=== PATIENT | female | born 1960 | race Caucasian/White ===

== ENCOUNTER 2021-06-25 10:06 | Day surgery (SDC) | payer MEDICAID ==
--- NOTE | 2021-06-24 13:23 | PCM.PREANE ---
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 bowls) daily:(medical)), Cough (started on Tuesday of last week: tickle in her throat (dry.)) Cardiovascular: No Symptoms (Elevated cholesterol, HTN), Dyspnea on Exertion, Lightheadedness Gastrointestinal: No Symptoms (GERD), Diarrhea Neurological: No Symptoms Other: Reports: None, Thyroid Problems (hypothyroid), Depression, Anxiety - Physical Assessment NPO Status Date: 06/24/21 NPO Status Time: 19:00 Vital Signs: HR: 94 Sat: 94% B/P: 156/82 Temp: 98.1 Resp: 16 Height: 1.65 m Weight: 84 kg ASA Class: 3 Mental Status: Alert & Oriented x3 Airway Class: Mallampati = 2 Dentition: Reports: Edentulous Thyro-Mental Finger Breadths: 3 Mouth Opening Finger Breadths: 3 ROM/Head Extension: Full Lungs: Clear to Auscultation, Normal Respiratory Effort Cardiovascular: Regular Rate, Regular Rhythm, No Murmurs - Lab Values: All labs reviewed and noted and within acceptable ranges to proceed with scheduled procedure. - Allergies Allergies/Adverse Reactions: Allergies Allergy/AdvReac Type Severity Reaction Status Date / Time No Known Allergies Allergy Verified 06/25/21 10:15 - Anesthesia Plan Pre-Op Medication Ordered: None - Acknowledgements Anesthesia Type Planned: MAC Pt an Appropriate Candidate for the Planned Anesthesia: Yes Alternatives and Risks of Anesthesia Discussed w Pt/Guardian: Yes Pt/Guardian Understands and Agrees with Anesthesia Plan: Yes PreAnesthesia Questionnaire - HOME MEDS Home Medications: Home Meds ALPRAZolam [Alprazolam] 0.5 mg PO DAILY PRN 12/18/14 [History] Acetaminophen/HYDROcodone [[place] 325-5 MG] 1 tab PO Q6H PRN 12/18/14 [History] Fluticasone Propionate [Flonase Allergy Relief] 1 spray JESENIA BID PRN 12/18/14 [History] Levothyroxine 150 mcg PO DAILY 12/18/14 [History] Loratadine 1 mg PO DAILY PRN 12/18/14 [History] Sertraline [Zoloft] 100 mg PO DAILY 12/18/14 [History] Zolpidem [Ambien] 5 - 10 mg PO BEDTIME 12/18/14 [History] - CURRENT (IN HOUSE) MEDS Current Meds: Current Medications Lactated Ringer's (Ringers, Lactated) 1,000 mls @ 125 mls/hr IV ASDIRECTED MARYJANE Lidocaine/Sodium Bicarbonate (Lidocaine 1%/Sod Bicarbonate In Ns 8.4% 1 Ml Syringe) 0.25 ml IDERM ONETIME PRN PRN Reason: Prior to IV Start Sodium Chloride (Sodium Chloride 0.9% 10 Ml Syringe) 10 ml FLUSH ASDIRECTED PRN PRN Reason: Keep Vein Open
[~2021-06-25 10:06] MED LIST: Lactated Ringers 1,000 ML IV SCH; Lidocaine 1%/Sod Bicarbonate in NS 8.4% 1 ML Syringe IDERM PRN; Sodium Chloride 0.9% 10 ML Syringe FLUSH PRN
[2021-06-25] MEDS ORDERED: Albuterol 0.083% 2.5 MG/3 ML Neb Soln NEB ONE ×2 (10:15→13:00)
[2021-06-25] MEDS ORDERED: Ondansetron 4 MG/2 ML SDV ONE (10:18)
[2021-06-25] MEDS ORDERED: Lactated Ringers 1,000 ML ONE (10:18)
[2021-06-25] MEDS ORDERED: ceFAZolin 1 GM Vial ONE (10:18)
[2021-06-25] MEDS ORDERED: Midazolam 1 MG/ML 2 ML SDV ONE (10:19)
[2021-06-25] MEDS ORDERED: fentaNYL 100 MCG/2 ML SDV ONE (10:19)
[2021-06-25] MEDS ORDERED: Propofol 200 MG/20 ML SDV ONE ×2 (10:19→12:14)
[2021-06-25] MEDS ORDERED: Ketamine 500 mg/10 ML MDV ONE (11:25)
[2021-06-25] MEDS ORDERED: Bupivacaine 0.5%/EPINEPHrine 1:200,000 50 ML MDV ONE (11:58)
[2021-06-25] MEDS ORDERED: HYDROmorphone 0.5 MG/0.5 ML Syringe IVPUSH PRN (12:07)
[2021-06-25] MEDS ORDERED: Ondansetron 4 MG/2 ML SDV IVPUSH PRN (12:07)
[2021-06-25] MEDS ORDERED: fentaNYL 100 MCG/2 ML SDV IVPUSH PRN (12:07)
[2021-06-25] MEDS ORDERED: HYDROmorphone 0.5 MG/0.5 ML Syringe ONE (12:16)
--- NOTE | 2021-06-25 13:06 | PCM.PRNOTE ---
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 Shave margins obtained. Titanium clips placed to demarcate margins. Detailed Report: The patient was taken to the operating room and placed on the table in prone position. Timeout was performed and the lower back buttocks and perineum were prepped in usual sterile fashion. A total of 25 cc 0.5% Marcaine with epinephrine was used for local anesthetic. A longitudinal ellipse was marked encompassing the site of prior incisional biopsy. The ellipse measured approximately 9 x 4-1/2 cm prior to incision. A 10 blade scalpel was used to incise through skin down to subcutaneous fat. Bovie electrocautery was used to raise skin flaps medially and laterally. Dissection was carried down deep to the level of muscle fascia. The specimen was removed intact containing the ellipse of skin and healthy appearing subcutaneous fat encompassing the lesion. Marking stitches were placed to denote the superior and lateral aspects of the specimen. The specimen measured 8 x 6 x 5 cm. Shave margins were obtained at the superior, inferior, medial, lateral, deep and superficial aspects. These boundaries were also marked with a small titanium clip fish stringer assembler. The wound was irrigated with hydrogen peroxide and hemostasis appeared excellent. The wound was closed with several vertical mattress nylon sutures and skin edges came together without undue tension. The patient tolerated the procedure well.
[2021-06-25 13:10] VITALS: PULSE 89
--- NOTE | 2021-06-25 13:11 | PCM48HPAN ---
Post Anesthesia Note - EVALUATION WITHIN 48HRS OF ANESTHETIC Vital Signs in Normal Range: Yes Patient Participated in Evaluation: Yes Respiratory Function Stable: Yes Airway Patent: Yes Cardiovascular Function Stable: Yes Hydration Status Stable: Yes Pain Control Satisfactory: Yes Nausea and Vomiting Control Satisfactory: Yes Mental Status Recovered: Yes Vital Signs: Last Vital Signs Temp 98.1 06/25/21 1257 Pulse 89 06/25/21 1257 Resp 12 06/25/21 1257 BP 131/89 06/25/21 1257 Pulse Ox 95% 06/25/21 1257
[2021-06-25 13:32] VITALS: BP 123/89
== END 2021-06-25 13:53 | disposition home or self-care (01) ==
LOC: JD.SDS 10:06
PROVIDERS: ATTEND Surgery
DX: C49.5 Malignant neoplasm of connective and soft tissue of pelvis (principal); I10 Essential (primary) hypertension; J44.9 Chronic obstructive pulmonary disease, unspecified; K21.9 Gastro-esophageal reflux disease without esophagitis; E78.00 Pure hypercholesterolemia, unspecified; E03.9 Hypothyroidism, unspecified; E78.2 Mixed hyperlipidemia; F41.1 Generalized anxiety disorder; F17.210 Nicotine dependence, cigarettes, uncomplicated; E55.9 Vitamin D deficiency, unspecified; Z79.899 Other long term (current) drug therapy; Z79.890 Hormone replacement therapy; Z98.890 Other specified postprocedural states
CPT/HCPCS: 00300; J0690; J1170; J2250; J2405; J2704; J3010; J3490; J7120

== ENCOUNTER 2021-07-07 07:41 | Day surgery (SDC) | payer MEDICAID ==
[~2021-07-07 07:41] MED LIST changes: +Albuterol 0.083% 2.5 MG/3 ML Neb Soln NEB SCH
[2021-07-07] MEDS ORDERED: Lidocaine 1% with EPINEPHrine 1:100,000 10 ML MDV ONE ×4 (07:55→09:05)
[2021-07-07] MEDS ORDERED: Propofol 200 MG/20 ML SDV ONE ×2 (08:18→09:01)
[2021-07-07] MEDS ORDERED: Ondansetron 4 MG/2 ML SDV ONE (08:18)
[2021-07-07] MEDS ORDERED: Midazolam 1 MG/ML 2 ML SDV ONE (08:19)
[2021-07-07] MEDS ORDERED: fentaNYL 250 MCG/5 ML SDV ONE (08:19)
[2021-07-07] MEDS ORDERED: Lidocaine 1% 4 ML ONE (08:19)
[2021-07-07] MEDS ORDERED: Ketamine 500 mg/10 ML MDV ONE (08:53)
--- NOTE | 2021-07-07 09:00 | PCM.PRNOTE ---
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 Specimen oriented with short stitch superior and long stitch lateral. Detailed Report: The patient was taken to the operating room and placed in prone position. Timeout was performed and monitored anesthesia care was initiated. The buttocks were prepped with iodine and draped in sterile fashion. 30 cc of 1% lidocaine with epinephrine was injected circumferentially around the old incision. A longitudinal ellipse was marked with wide lateral and medial margins. Sharp dissection was carried down through skin and subcutaneous fat down to the level of the gluteus. During the deep dissection, the seroma cavity was entered and serous fluid was spilled. The dissection field was suctioned dry. The specimen was removed in 1 piece and oriented with stitches marking the superior and lateral aspects. The final specimen measured approximately 10 x 8 x 5 cm. The dissection field was dry and hemostasis was satisfactory. The wound was closed with several interrupted vertical mattress nylon sutures. A dry dressing was placed. The patient tolerated the procedure well.
[2021-07-07] MEDS ORDERED: Labetalol 100 MG/20 ML MDV ONE (09:05)
--- NOTE | 2021-07-07 09:52 | PCM.PREANE ---
Preanesthetic Assessment - Procedure Proposed Procedure: wide local incision left buttock - Anesthesia/Transfusion/Family Hx Anesthesia History: Prior Anesthesia Without Reaction Family History of Anesthesia Reaction: No Transfusion History: No Prior Transfusion(s) Intubation History: Unknown - Review of Systems General: No Symptoms Pulmonary: No Symptoms Cardiovascular: Dyspnea on Exertion Gastrointestinal: No Symptoms Neurological: No Symptoms Other: Reports: Thyroid Problems (hypothyroid) - Physical Assessment NPO Status Date: 07/06/21 NPO Status Time: 00:00 Vital Signs: Last Vital Signs Temp 36.6 C 07/07/21 07:50 Pulse 64 07/07/21 07:50 Resp 18 07/07/21 07:50 BP 165/97 H 07/07/21 07:50 Pulse Ox 95 07/07/21 07:50 Height: 1.65 m Weight: 87.09 kg ASA Class: 3 Mental Status: Alert & Oriented x3 Airway Class: Mallampati = 1 Dentition: Reports: Dentures Thyro-Mental Finger Breadths: 3 Mouth Opening Finger Breadths: 3 ROM/Head Extension: Limited/Partial Lungs: Clear to Auscultation, Normal Respiratory Effort Cardiovascular: Regular Rate, Regular Rhythm - Allergies Allergies/Adverse Reactions: Allergies Allergy/AdvReac Type Severity Reaction Status Date / Time No Known Allergies Allergy Verified 07/07/21 08:47 - Blood Blood Available: No Product(s) Available: None - Anesthesia Plan Pre-Op Medication Ordered: None - Acknowledgements Anesthesia Type Planned: MAC Pt an Appropriate Candidate for the Planned Anesthesia: Yes Alternatives and Risks of Anesthesia Discussed w Pt/Guardian: Yes Pt/Guardian Understands and Agrees with Anesthesia Plan: Yes PreAnesthesia Questionnaire HEENT History: Reports: Allergic Rhinitis Cardiovascular History: Reports: High Cholesterol, Hypertension Respiratory History: Reports: COPD Gastrointestinal History: Reports: Chronic Diarrhea, GERD, Irritable Bowel Syndrome Genitourinary History: Reports: None 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 (See Below) Other OB/BYN History: post menopausal, c section, breast lumpectomy, cervix conization Musculoskeletal History: Reports: Osteoarthritis, Other (See Below) Other Musculoskeletal History: left ankle pain, right knee chondromalacia patellae, left tennis elbow, right knee pain, right shoulder pain, quad tightness, left knee contusion Neurological History: Reports: None Psychiatric History: Reports: None Endocrine/Metabolic History: Reports: Hypothyroidism, Vitamin D Deficiency Hematologic History: Reports: None Immunologic History: Reports: None Oncologic (Cancer) History: Reports: Other (See Below) Other Oncologic History: malignant fibrous histiocytoma Dermatologic History: Reports: Other (See Below) Other Dermatologic History: buttock contusion, eczema, buttock sarcoma, skin pruritis, soft tissue mass, traumatic hematoma to left elbow - Infectious Disease History Infectious Disease History: Reports: None - Past Surgical History Head Surgeries/Procedures: Reports: None HEENT Surgical History: Reports: None Cardiovascular Surgical History: Reports: None Respiratory Surgical History: Reports: None GI Surgical History: Reports: None Female Surgical History: Reports: Tubal Ligation Endocrine Surgical History: Reports: None Neurological Surgical History: Reports: None Musculoskeletal Surgical History: Reports: Other (See Below) Other Musculoskeletal Surgeries/Procedures:: knee surgery, Oncologic Surgical History: Reports: Lumpectomy Dermatological Surgical History: Reports: None - SUBSTANCE USE Tobacco Use Status *Q: Current Every Day Tobacco User Tobacco Use Within Last Twelve Months: Cigarettes Second Hand Smoke Exposure: No Days Per Week of Alcohol Use: 1 Number of Drinks Per Day: 2 Total Drinks Per Week: 2 Recreational Drug Use History: No - HOME MEDS Home Medications: Home Meds Albuterol [Ventolin HFA] 1 - 2 puff INH Q4HR 07/07/21 [History] Cholecalciferol (Vitamin D3) [Vitamin D3] 5,000 unit PO DAILY 07/07/21 [History] Escitalopram Oxalate [Lexapro] 20 mg PO DAILY 07/07/21 [History] Levothyroxine 200 mcg PO ACBREAKFAST 07/07/21 [History] Pantoprazole Sodium [Protonix] 20 mg PO DAILY 07/07/21 [History] atorvaSTATin [Lipitor] 20 mg PO DAILY 07/07/21 [History] buPROPion [buPROPion XL] 150 mg PO DAILY 07/07/21 [History] lisinopriL [Lisinopril] 10 mg PO DAILY 07/07/21 [History] oxyCODONE 5 mg PO Q4H PRN #20 tab 07/07/21 [Rx] - CURRENT (IN HOUSE) MEDS Current Meds: Current Medications Albuterol (Albuterol 0.083% 2.5 Mg/3 Ml Neb Soln) 2.5 mg NEB ONETIME MARYJANE Stop: 07/07/21 16:00 Last Admin: 07/07/21 08:19 Dose: 2.5 mg Documented by: Lactated Ringer's (Ringers, Lactated) 1,000 mls @ 125 mls/hr IV ASDIRECTED MARYJANE Stop: 07/07/21 23:00 Last Admin: 07/07/21 08:15 Dose: 125 mls/hr Documented by: Lidocaine/Sodium Bicarbonate (Lidocaine 1%/Sod Bicarbonate In Ns 8.4% 1 Ml Syringe) 0.25 ml IDERM ONETIME PRN PRN Reason: Prior to IV Start Stop: 07/07/21 23:00 Last Admin: 07/07/21 08:15 Dose: 0.25 ml Documented by: Sodium Chloride (Sodium Chloride 0.9% 10 Ml Syringe) 10 ml FLUSH ASDIRECTED PRN PRN Reason: Keep Vein Open Stop: 07/07/21 23:00 Discontinued Medications Fentanyl (Fentanyl 250 Mcg/5 Ml Sdv) Confirm Administered Dose 250 mcg .ROUTE .STK-MED ONE Stop: 07/07/21 08:20 Lidocaine HCl (Xylocaine-Mpf 1%) Confirm Administered Dose 4 mls @ as directed .ROUTE .STK-MED ONE Stop: 07/07/21 08:20 Ketamine HCl (Ketamine 500 Mg/10 Ml Mdv) Confirm Administered Dose 500 mg .ROUTE .STK-MED ONE Stop: 07/07/21 08:54 Labetalol HCl (Labetalol 100 Mg/20 Ml Mdv) Confirm Administered Dose 100 mg .ROUTE .STK-MED ONE Stop: 07/07/21 09:06 Lidocaine/Epinephrine (Lidocaine 1% With Epinephrine 1:100,000 10 Ml Mdv) Confirm Administered Dose 10 ml .ROUTE .STK-MED ONE Stop: 07/07/21 07:56 Lidocaine/Epinephrine (Lidocaine 1% With Epinephrine 1:100,000 10 Ml Mdv) Confirm Administered Dose 10 ml .ROUTE .STK-MED ONE Stop: 07/07/21 07:59 Lidocaine/Epinephrine (Lidocaine 1% With Epinephrine 1:100,000 10 Ml Mdv) Confirm Administered Dose 20 ml .ROUTE .STK-MED ONE Stop: 07/07/21 09:03 Lidocaine/Epinephrine (Lidocaine 1% With Epinephrine 1:100,000 10 Ml Mdv) Confirm Administered Dose 20 ml .ROUTE .STK-MED ONE Stop: 07/07/21 09:06 Midazolam HCl (Midazolam 1 Mg/Ml 2 Ml Sdv) Confirm Administered Dose 2 mg .ROUTE .STK-MED ONE Stop: 07/07/21 08:20 Ondansetron HCl (Ondansetron 4 Mg/2 Ml Sdv) Confirm Administered Dose 4 mg .ROUTE .STK-MED ONE Stop: 07/07/21 08:19 Propofol (Propofol 200 Mg/20 Ml Sdv) Confirm Administered Dose 200 mg .ROUTE .STK-MED ONE Stop: 07/07/21 08:19 Propofol (Propofol 200 Mg/20 Ml Sdv) Confirm Administered Dose 200 mg .ROUTE .STK-MED ONE Stop: 07/07/21 09:02
--- NOTE | 2021-07-07 10:06 | PCM48HPAN ---
Post Anesthesia Note - EVALUATION WITHIN 48HRS OF ANESTHETIC Vital Signs in Normal Range: Yes Patient Participated in Evaluation: Yes Respiratory Function Stable: Yes Airway Patent: Yes Cardiovascular Function Stable: Yes Hydration Status Stable: Yes Pain Control Satisfactory: Yes Nausea and Vomiting Control Satisfactory: Yes Mental Status Recovered: Yes Vital Signs: Last Vital Signs Temp 36.6 C 07/07/21 07:50 Pulse 64 07/07/21 07:50 Resp 18 07/07/21 07:50 BP 165/97 H 07/07/21 07:50 Pulse Ox 95 07/07/21 07:50 - COMMENTS/OBSERVATIONS Free Text/Narrative:: no anesthesia complications noted
[2021-07-07 11:17] VITALS: BP 127/78; PULSE 61
== END 2021-07-07 10:43 | disposition home or self-care (01) ==
LOC: JD.SDS 07:41
PROVIDERS: ATTEND Surgery
DX: C44.509 Unspecified malignant neoplasm of skin of other part of trunk (principal); F41.9 Anxiety disorder, unspecified; J44.9 Chronic obstructive pulmonary disease, unspecified; K21.9 Gastro-esophageal reflux disease without esophagitis; I10 Essential (primary) hypertension; E03.9 Hypothyroidism, unspecified; E78.2 Mixed hyperlipidemia; E55.9 Vitamin D deficiency, unspecified; F17.200 Nicotine dependence, unspecified, uncomplicated; Z79.899 Other long term (current) drug therapy; Z79.890 Hormone replacement therapy; Z98.890 Other specified postprocedural states
CPT/HCPCS: 21936; J2250; J2405; J2704; J3010; J3490; J7120; 00300

== ENCOUNTER 2021-07-11 17:55 | Emergency (ER) | payer MEDICAID ==
[2021-07-11 18:08] VITALS: BP 136/89; PULSE 102
[2021-07-11] MEDS ORDERED: cefTRIAXone 2 GM in Sodium Chloride 0.9% 100 ML IV ONE (18:27)
[2021-07-11] MEDS ORDERED: Sodium Chloride 0.9% 10 ML Syringe FLUSH PRN (18:29)
--- NOTE | 2021-07-11 18:37 | EDM.PDOC ---
ED HPI GENERAL MEDICAL PROBLEM - General Chief Complaint: Skin Complaint Stated Complaint: SKIN COMPLAINT/POSS INFECTION Time Seen by Provider: 07/11/21 18:14 Source of Information: Reports: Patient, RN Notes Reviewed History Limitations: Reports: No Limitations - History of Present Illness INITIAL COMMENTS - FREE TEXT/NARRATIVE: Patient is a 61-year-old female who presents to the ER for evaluation of a skin complaint. States that she had a grade [address] sarcoma lesion excised [address] Dr[address] Sanchez earlier this week. States that she is concerned about the area because she had her daughter look at it and there was some mild drainage along with associated redness that seems to be extending past the wound. The wound itself is about 20 cm, linear in fashion. There is some crust-like drainage at the top of the wound, and there does appear to be some purulent type drainage towards the bottom of the wound. This runs in a vertical fashion on the patient's left inner glute. She is denying any fevers or chills, cough or shortness of breath or any sort of sick-like symptoms. Patient states it doesn't seem to be more tender than normal either. - Related Data Allergies Allergy/AdvReac Type Severity Reaction Status Date / Time No Known Allergies Allergy Verified 07/11/21 18:08 Home Meds: Home Meds Albuterol [Ventolin HFA] 1 - 2 puff INH Q4HR 07/07/21 [History] Cholecalciferol (Vitamin D3) [Vitamin D3] 5,000 unit PO DAILY 07/07/21 [History] Escitalopram Oxalate [Lexapro] 20 mg PO DAILY 07/07/21 [History] Levothyroxine 200 mcg PO ACBREAKFAST 07/07/21 [History] Pantoprazole Sodium [Protonix] 20 mg PO DAILY 07/07/21 [History] atorvaSTATin [Lipitor] 20 mg PO DAILY 07/07/21 [History] buPROPion [buPROPion XL] 150 mg PO DAILY 07/07/21 [History] lisinopriL [Lisinopril] 10 mg PO DAILY 07/07/21 [History] oxyCODONE 5 mg PO Q4H PRN #20 tab 07/07/21 [Rx] Doxycycline [Vibramycin] 100 mg PO BID 7 Days #14 tab 07/11/21 [Rx] Past Medical History HEENT History: Reports: Allergic Rhinitis Cardiovascular History: Reports: High Cholesterol, Hypertension Respiratory History: Reports: COPD Gastrointestinal History: Reports: Chronic Diarrhea, GERD, Irritable Bowel Syndrome Genitourinary History: Reports: None 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: 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 (See Below) Other 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 History: post menopausal, c section, breast lumpectomy, cervix conization Musculoskeletal History: Reports: Osteoarthritis, Other (See Below) Other Musculoskeletal History: left ankle pain, right knee chondromalacia patellae, left tennis elbow, right knee pain, right shoulder pain, quad tightness, left knee contusion Neurological History: Reports: None Psychiatric History: Reports: Anxiety, Depression Endocrine/Metabolic History: Reports: Hypothyroidism, Vitamin D Deficiency Hematologic History: Reports: None Immunologic History: Reports: None Oncologic (Cancer) History: Reports: Other (See Below) Other Oncologic History: malignant fibrous histiocytoma, stage 2 high grade sarcoma Dermatologic History: Reports: Other (See Below) Other Dermatologic History: eczema, buttock sarcoma, skin pruritis, soft tissue mass, traumatic hematoma to left elbow - Infectious Disease History Infectious Disease History: Reports: None - Past Surgical History Female Surgical History: Reports: Tubal Ligation Endocrine Surgical History: Reports: None Musculoskeletal Surgical History: Reports: Other (See Below) Other Musculoskeletal Surgeries/Procedures:: knee surgery, Oncologic Surgical History: Reports: Lumpectomy Social & Family History - Tobacco Use Tobacco Use Status *Q: Current Every Day Tobacco User Years of Tobacco use: 45 Packs/Tins Daily: 1.5 - Caffeine Use Caffeine Use: Reports: Soda - Recreational Drug Use Recreational Drug Use: No ED ROS GENERAL - Review of Systems Review Of Systems: Comprehensive ROS is negative, except as noted in HPI. ED EXAM, SKIN/RASH Exam: See Below Exam Limited By: No Limitations General Appearance: Alert, WD/WN, No Apparent Distress Respiratory/Chest: No Respiratory Distress, Lungs Clear, Normal Breath Sounds, No Accessory Muscle Use, Chest Non-Tender Cardiovascular: Normal Peripheral Pulses, Regular Rate, Rhythm, No Edema Extremities: Normal Inspection, Normal Capillary Refill Neurological: Alert, Oriented, Normal Cognition, No Motor/Sensory Deficits Psychiatric: Normal Affect, Normal Mood Skin: Warm, Dry, Normal Color, No Rash, Erythema (This extends roughly 2 to 3 cm past the surgical wound, in a semicircular fashion towards the lateral portion of the patient's glute; slight warmth to the touch), Wound/Incision (20 cm linear surgical wound to the inner portion of the patient's left glute there is some crusting at the superior portion of the wound and some purulent type drainage near the inferior portion of the wound) Course - Vital Signs Last Recorded V/S: Last Vital Signs Temp 97.4 F 07/11/21 18:02 Pulse 102 H 07/11/21 18:02 Resp 16 07/11/21 18:02 BP 136/89 07/11/21 18:02 Pulse Ox 92 L 07/11/21 18:02 - Orders/Labs/Meds Orders: Active Orders 24 hr Category Date Time Status Peripheral IV Care [RC] . DIRECTED Care 07/11/21 18:29 Ordered Sodium Chloride 0.9% [Saline Flush] Med 07/11/21 18:29 Ordered 10 ml FLUSH ASDIRECTED PRN cefTRIAXone [Rocephin] 2 gm Med 07/11/21 18:27 Ordered Sodium Chloride 0.9% [Normal Saline AdvBag] 100 ml IV ONETIME Peripheral IV Insertion Adult [OM.PC] Routine Oth 07/11/21 18:29 Ordered Medication Orders Ceftriaxone Sodium 2 gm/ (Sodium Chloride) 100 mls @ 200 mls/hr IV ONETIME ONE Stop: 07/11/21 18:56 Last Admin: 07/11/21 18:44 Dose: 200 mls/hr Documented by: KAE Sodium Chloride (Sodium Chloride 0.9% 10 Ml Syringe) 10 ml FLUSH ASDIRECTED PRN PRN Reason: Keep Vein Open Last Admin: 07/11/21 18:39 Dose: 10 ml Documented by: JOSIE Meds: Medications Generic Name Dose Route Start Last Admin Trade Name Freq PRN Reason Stop Dose Admin Ceftriaxone Sodium 2 gm/ 100 mls @ 200 mls/hr 07/11/21 18:27 07/11/21 18:44 Sodium Chloride IV 07/11/21 18:56 200 mls/hr ONETIME ONE Administration Sodium Chloride 10 ml 07/11/21 18:29 07/11/21 18:39 Sodium Chloride 0.9% 10 Ml Syringe FLUSH 10 ml ASDIRECTED PRN Administration Keep Vein Open - Re-Assessments/Exams Free Text/Narrative Re-Assessment/Exam: 07/11/21 18:41 Patient presents to the ER for evaluation of her surgical wound. There is some extending erythema past surgical borders, the wound itself appears to be healing okay but again I'm worried about the erythema that seems to be extending past the borders. I did have Dr. Lucio take a look at the wound with me and he does agree that it looks to be infectious we'll go ahead and give her 2 g Rocephin IV and start her on oral doxycycline for management. Patient is to keep her appoint with Dr. Sanchez on for ongoing management. We will try to have her take a picture of the area so he can see how it was or how it looked today Departure - Departure Time of Disposition: 18:52 Disposition: Home, Self-Care 01 Condition: Good Clinical Impression: Cellulitis of buttock, left - Discharge Information *PRESCRIPTION DRUG MONITORING PROGRAM REVIEWED*: No *COPY OF PRESCRIPTION DRUG MONITORING REPORT IN PATIENT SURINDER: No Prescriptions: Doxycycline [Vibramycin] 100 mg PO BID 7 Days #14 tab Instructions: Cellulitis, Adult, [id number] Referrals: Jane Pires CLUB DIRECTOR [Primary Care Provider] - Forms: ED Department Discharge Additional Instructions: You were evaluated in the ER today regarding a suspected skin infection. It does appear that you have a cellulitis near your surgical wound. You were given 1 dose of IV antibiotics in the ER to help start providing protection against infection. You were given an antibiotic, doxycycline 100 mg twice daily please take as prescribed until the course is done or told otherwise by different provider. Please note that this antibiotic will take at least 48 hours to start working appropriately. This medication was electronically sent to the [place] pharmacy located in the [facility] [employer] [facility]. You may take 500 mg Tylenol or 600 mg ibuprofen every 6 hours as needed for further pain relief. Do not exceed 4000 mg Tylenol or 3200 mg ibuprofen in a 24-hour time span. Please keep your appointment with the surgeon on for ongoing management. I would strongly recommend that you had someone take a picture of the area today to make sure that he can see how the wound looked in comparison to when you have your appointment on . Please return to the ER at any time if your symptoms change or worsen. Sepsis Event Note (ED) - Focused Exam Vital Signs: Vital Signs Temp Pulse Resp BP Pulse Ox 07/11/21 18:02 97.4 F 102 H 16 136/89 92 L - My Orders Last 24 Hours: My Active Orders 07/11/21 18:27 cefTRIAXone [Rocephin] 2 gm Sodium Chloride 0.9% [Normal Saline AdvBag] 100 ml IV ONETIME 07/11/21 18:29 Peripheral IV Care [RC] . DIRECTED Sodium Chloride 0.9% [Saline Flush] 10 ml FLUSH ASDIRECTED PRN Peripheral IV Insertion Adult [OM.PC] Routine - Assessment/Plan Last 24 Hours: My Active Orders 07/11/21 18:27 cefTRIAXone [Rocephin] 2 gm Sodium Chloride 0.9% [Normal Saline AdvBag] 100 ml IV ONETIME 07/11/21 18:29 Peripheral IV Care [RC] . DIRECTED Sodium Chloride 0.9% [Saline Flush] 10 ml FLUSH ASDIRECTED PRN Peripheral IV Insertion Adult [OM.PC] Routine
== END 2021-07-11 19:15 | disposition home or self-care (01) ==
LOC: JD.ED 17:55
DX: L03.317 Cellulitis of buttock (principal); E78.00 Pure hypercholesterolemia, unspecified; I10 Essential (primary) hypertension; J44.9 Chronic obstructive pulmonary disease, unspecified; K21.9 Gastro-esophageal reflux disease without esophagitis; E03.9 Hypothyroidism, unspecified; Z79.899 Other long term (current) drug therapy; Z72.0 Tobacco use
CPT/HCPCS: 96365; 99283; J0696

== ENCOUNTER 2022-01-19 07:20 | Day surgery (SDC) | payer MEDICARE, MEDICAID ==
[~2022-01-19 07:20] MED LIST changes: -Albuterol 0.083% 2.5 MG/3 ML Neb Soln NEB SCH; +Sodium Chloride 0.9% 10 ML Syringe FLUSH SCH
[2022-01-19] MEDS ORDERED: Albuterol 0.083% 2.5 MG/3 ML Neb Soln NEB ONE (12:15)
[2022-01-19] MEDS ORDERED: Bupivacaine 0.5%/EPINEPHrine 1:200,000 50 ML MDV ONE (13:07)
[2022-01-19] MEDS ORDERED: Propofol 200 MG/20 ML SDV ONE ×2 (13:17→14:43)
[2022-01-19] MEDS ORDERED: Lidocaine 1% 5 ML VIAL ONE (13:18)
[2022-01-19] MEDS ORDERED: Ketamine 500 mg/10 ML MDV ONE (13:18)
[2022-01-19] MEDS ORDERED: fentaNYL 250 MCG/5 ML SDV ONE (13:18)
[2022-01-19] MEDS ORDERED: Midazolam 1 MG/ML 2 ML SDV ONE (13:19)
[2022-01-19] MEDS ORDERED: Ondansetron 4 MG/2 ML SDV IVPUSH PRN (13:20)
[2022-01-19] MEDS ORDERED: fentaNYL 100 MCG/2 ML SDV IVPUSH PRN (13:20)
[2022-01-19] MEDS ORDERED: HYDROmorphone 0.5 MG/0.5 ML Syringe IVPUSH PRN (13:20)
[2022-01-19 15:41] VITALS: BP 124/75; PULSE 68
== END 2022-01-19 16:05 | disposition home or self-care (01) ==
LOC: JD.SDS 07:20
PROVIDERS: ATTEND Surgery
DX: T81.31XA Disruption of external operation (surgical) wound, not elsewhere classified, initial encounter (principal); T14.8XXA Other injury of unspecified body region, initial encounter; R52 Pain, unspecified; J44.9 Chronic obstructive pulmonary disease, unspecified; F32.A Depression, unspecified; K21.9 Gastro-esophageal reflux disease without esophagitis; F41.9 Anxiety disorder, unspecified; I10 Essential (primary) hypertension; F17.210 Nicotine dependence, cigarettes, uncomplicated; E78.00 Pure hypercholesterolemia, unspecified; E03.9 Hypothyroidism, unspecified; E78.2 Mixed hyperlipidemia; E66.9 Obesity, unspecified; Z68.30 Body mass index [BMI] 30.0-30.9, adult; Z79.51 Long term (current) use of inhaled steroids; Z79.890 Hormone replacement therapy; Z79.899 Other long term (current) drug therapy; Y83.8 Other surgical procedures as the cause of abnormal reaction of the patient, or of later complication, without mention of misadventure at the time of the procedure
CPT/HCPCS: 11042; 11045; J2250; J2704; J3010; J3490

== ENCOUNTER 2022-02-16 08:56 | Inpatient (IN) | payer MEDICARE, MEDICAID ==
[~2022-02-16 08:56] MED LIST changes: -Sodium Chloride 0.9% 10 ML Syringe FLUSH SCH
[2022-02-16] MEDS ORDERED: Albuterol 0.083% 2.5 MG/3 ML Neb Soln NEB ONE (09:50)
[2022-02-16] MEDS ORDERED: Bupivacaine 0.5%/EPINEPHrine 1:200,000 50 ML MDV ONE (10:11)
[2022-02-16] MEDS ORDERED: Dexamethasone 4 MG/ML 5 ML MDV ONE (10:16)
[2022-02-16] MEDS ORDERED: Ondansetron 4 MG/2 ML SDV ONE (10:16)
[2022-02-16] MEDS ORDERED: Lidocaine 1% 6 ML ONE (10:16)
[2022-02-16] MEDS ORDERED: Propofol 200 MG/20 ML SDV ONE ×2 (10:16→11:41)
[2022-02-16] MEDS ORDERED: Midazolam 1 MG/ML 2 ML SDV ONE (10:16)
[2022-02-16] MEDS ORDERED: fentaNYL 100 MCG/2 ML SDV ONE (10:16)
[2022-02-16] MEDS ORDERED: fentaNYL 100 MCG/2 ML SDV IVPUSH PRN (12:15)
[2022-02-16] MEDS ORDERED: Ondansetron 4 MG/2 ML SDV IVPUSH PRN (12:15)
[2022-02-16] MEDS ORDERED: HYDROmorphone 0.5 MG/0.5 ML Syringe IVPUSH PRN ×2 (12:15→12:18)
[2022-02-16] MEDS ORDERED: Atropine/Diphenoxylate 0.025-2.5 MG Tab PO PRN (12:16)
[2022-02-16] MEDS: Sodium Chloride 0.9% 10 ML Syringe FLUSH SCH ×2 (12:35→12:36)
[2022-02-16] MEDS: Ketorolac 15 MG/ML SDV IVPUSH SCH ×2 (12:43→18:14)
[2022-02-16] MEDS ORDERED: Albuterol 6.7 GM Inhaler INH SCH (13:00)
[2022-02-16] MEDS ORDERED: Albuterol 6.7 GM Inhaler INH PRN (13:15)
[2022-02-16] MEDS: Acetaminophen 325 MG Tab PO SCH ×2 (14:18→21:14)
[2022-02-16] MEDS: Heparin Sodium 5,000 Units/ML Vial SUBCUT SCH ×2 (14:19→21:22)
[2022-02-16] MEDS: HYDROmorphone 0.5 MG/0.5 ML Syringe IVPUSH PRN (18:23)
[2022-02-16] MEDS ORDERED: buPROPion 150 MG Tab.SR PO SCH (21:00)
[2022-02-16] MEDS ORDERED: SUVOREXANT 10 MG PO PRN (21:00)
[2022-02-16] MEDS: oxyCODONE 5 MG Tab PO PRN (21:16)
[2022-02-17] MEDS: Ketorolac 15 MG/ML SDV IVPUSH SCH ×3 (00:15→12:05)
[2022-02-17] MEDS: oxyCODONE 5 MG Tab PO PRN ×2 (00:54→05:02)
[2022-02-17] MEDS: Ondansetron 4 MG/2 ML SDV IVPUSH PRN ×3 (00:58→15:42)
[2022-02-17] MEDS: HYDROmorphone 0.5 MG/0.5 ML Syringe IVPUSH PRN (03:30)
[2022-02-17] MEDS: Heparin Sodium 5,000 Units/ML Vial SUBCUT SCH ×4 (06:19→21:27)
[2022-02-17] MEDS: Levothyroxine 75 MCG Tab PO SCH (06:23)
[2022-02-17] MEDS: Acetaminophen 325 MG Tab PO SCH ×4 (06:24→21:27)
[2022-02-17] MEDS: Cholecalciferol (Vitamin D3) 5,000 UNIT Tab PO SCH (09:24)
[2022-02-17] MEDS: Citalopram 20 MG Tab PO SCH (09:25)
[2022-02-17] MEDS: atorvaSTATin 20 MG Tab PO SCH (09:26)
[2022-02-17] MEDS: Pantoprazole 40 MG Tab.CR PO SCH (09:27)
[2022-02-17] MEDS: Nicotine 21 MG/24 Hr Patch TRDERM SCH (09:28)
[2022-02-17] MEDS: Lisinopril 10 MG Tab PO SCH (09:28)
[2022-02-17] MEDS: buPROPion 150 MG Tab.SR PO SCH ×2 (09:29→19:59)
[2022-02-17] MEDS: FLUTICASONE INH SCH (09:45)
[2022-02-17] MEDS: UMECLIDIN INH SCH (09:45)
[2022-02-17] MEDS: VILANTER INH SCH (09:45)
[2022-02-17] MEDS: D5 1/2 NS w/ 20 mEq/L KCl 1,000 ML IV SCH (16:38)
[2022-02-17] MEDS: Promethazine 12.5 MG in Sodium Chloride 0.9% 50 ML IV PRN (16:39)
[2022-02-17] MEDS ORDERED: LORazepam 2 MG/ML SDV IVPUSH ONE ×2 (16:44→16:55)
[2022-02-17] MEDS ORDERED: LORazepam 2 MG/ML SDV ONE (16:52)
[2022-02-18] MEDS: Ondansetron 4 MG/2 ML SDV IVPUSH PRN (00:15)
[2022-02-18] MEDS: Promethazine 12.5 MG in Sodium Chloride 0.9% 50 ML IV PRN (02:36)
[2022-02-18] MEDS: D5 1/2 NS w/ 20 mEq/L KCl 1,000 ML IV SCH ×2 (04:38→18:40)
[2022-02-18] MEDS: Acetaminophen 325 MG Tab PO SCH ×4 (05:17→21:55)
[2022-02-18] MEDS: Levothyroxine 75 MCG Tab PO SCH (05:17)
[2022-02-18] MEDS: Heparin Sodium 5,000 Units/ML Vial SUBCUT SCH ×4 (05:18→21:55)
[2022-02-18] MEDS: oxyCODONE 5 MG Tab PO PRN ×3 (07:37→18:45)
[2022-02-18] MEDS ORDERED: HYDROmorphone 1 MG/ML Syringe IVPUSH ONE (07:56)
[2022-02-18] MEDS: Lisinopril 10 MG Tab PO SCH (08:33)
[2022-02-18] MEDS: Cholecalciferol (Vitamin D3) 5,000 UNIT Tab PO SCH (08:33)
[2022-02-18] MEDS: Pantoprazole 40 MG Tab.CR PO SCH (08:33)
[2022-02-18] MEDS: atorvaSTATin 20 MG Tab PO SCH (08:33)
[2022-02-18] MEDS: Citalopram 20 MG Tab PO SCH (08:33)
[2022-02-18] MEDS: buPROPion 150 MG Tab.SR PO SCH ×2 (08:37→20:39)
[2022-02-18] MEDS: Nicotine 21 MG/24 Hr Patch TRDERM SCH (08:37)
[2022-02-18] MEDS: VILANTER INH SCH (08:47)
[2022-02-18] MEDS: UMECLIDIN INH SCH (08:47)
[2022-02-18] MEDS: FLUTICASONE INH SCH (08:47)
[2022-02-18] MEDS: Sodium Hypochlorite 0.25% Soln 473 ML TOP PRN (09:00)
[2022-02-18] MEDS ORDERED: fentaNYL 100 MCG/2 ML SDV IVPUSH ONE (09:23)
[2022-02-18] MEDS: HYDROmorphone 0.5 MG/0.5 ML Syringe IVPUSH PRN ×3 (11:19→20:39)
[2022-02-19] MEDS: oxyCODONE 5 MG Tab PO PRN ×4 (02:00→18:40)
[2022-02-19] MEDS: HYDROmorphone 0.5 MG/0.5 ML Syringe IVPUSH PRN ×4 (03:31→20:10)
[2022-02-19] MEDS: Heparin Sodium 5,000 Units/ML Vial SUBCUT SCH ×4 (05:55→22:21)
[2022-02-19] MEDS: Levothyroxine 75 MCG Tab PO SCH (05:55)
[2022-02-19] MEDS: Acetaminophen 325 MG Tab PO SCH ×4 (05:56→22:21)
[2022-02-19] MEDS: FLUTICASONE INH SCH (08:29)
[2022-02-19] MEDS: VILANTER INH SCH (08:29)
[2022-02-19] MEDS: UMECLIDIN INH SCH (08:29)
[2022-02-19] MEDS: D5 1/2 NS w/ 20 mEq/L KCl 1,000 ML IV SCH ×2 (08:30→20:39)
[2022-02-19] MEDS: atorvaSTATin 20 MG Tab PO SCH (09:37)
[2022-02-19] MEDS: Citalopram 20 MG Tab PO SCH (09:38)
[2022-02-19] MEDS: Pantoprazole 40 MG Tab.CR PO SCH (09:38)
[2022-02-19] MEDS: Cholecalciferol (Vitamin D3) 5,000 UNIT Tab PO SCH (09:38)
[2022-02-19] MEDS: Lisinopril 10 MG Tab PO SCH (09:38)
[2022-02-19] MEDS: buPROPion 150 MG Tab.SR PO SCH ×2 (09:39→20:46)
[2022-02-19] MEDS ORDERED: Polyethylene Glycol 3350 Powder 17 GM Packet PO PRN (09:55)
[2022-02-19] MEDS: Sodium Hypochlorite 0.25% Soln 473 ML TOP PRN (18:00)
[2022-02-20] MEDS: oxyCODONE 5 MG Tab PO PRN ×2 (04:23→09:11)
[2022-02-20] MEDS: Levothyroxine 75 MCG Tab PO SCH (05:56)
[2022-02-20] MEDS: Acetaminophen 325 MG Tab PO SCH (05:56)
[2022-02-20] MEDS: Heparin Sodium 5,000 Units/ML Vial SUBCUT SCH (05:56)
[2022-02-20] MEDS ORDERED: fentaNYL 100 MCG/2 ML SDV IVPUSH ONE (06:30)
[2022-02-20 07:18] VITALS: PULSE 66
[2022-02-20] MEDS: FLUTICASONE INH SCH (08:34)
[2022-02-20] MEDS: UMECLIDIN INH SCH (08:34)
[2022-02-20] MEDS: VILANTER INH SCH (08:34)
[2022-02-20] MEDS: Citalopram 20 MG Tab PO SCH (09:10)
[2022-02-20] MEDS: atorvaSTATin 20 MG Tab PO SCH (09:11)
[2022-02-20] MEDS: Cholecalciferol (Vitamin D3) 5,000 UNIT Tab PO SCH (09:11)
[2022-02-20] MEDS: Lisinopril 10 MG Tab PO SCH (09:11)
[2022-02-20] MEDS: Pantoprazole 40 MG Tab.CR PO SCH (09:11)
[2022-02-20] MEDS: buPROPion 150 MG Tab.SR PO SCH (09:12)
[2022-02-20 11:48] VITALS: BP 143/74
[2022-02-21] MEDS ORDERED: Levothyroxine 100 MCG Tab PO SCH (06:00)
== END 2022-02-20 12:32 | disposition home or self-care (01) | DRG 902 ==
LOC: JD.SDS 08:56 → JD.MS 12:03
PROVIDERS: ADMIT Surgery; ATTEND Surgery
PROC: 0JB90ZZ Excision of Buttock Subcutaneous Tissue and Fascia, Open Approach (ICD-10-PCS; principal; 2022-02-16)
DX: T81.89XA Other complications of procedures, not elsewhere classified, initial encounter (principal); C49.5 Malignant neoplasm of connective and soft tissue of pelvis; H54.7 Unspecified visual loss; E78.00 Pure hypercholesterolemia, unspecified; I10 Essential (primary) hypertension; J44.9 Chronic obstructive pulmonary disease, unspecified; K52.9 Noninfective gastroenteritis and colitis, unspecified; K21.9 Gastro-esophageal reflux disease without esophagitis; K59.00 Constipation, unspecified; K58.9 Irritable bowel syndrome, unspecified; M19.90 Unspecified osteoarthritis, unspecified site; F41.9 Anxiety disorder, unspecified; F32.A Depression, unspecified; E03.9 Hypothyroidism, unspecified; E55.9 Vitamin D deficiency, unspecified; F17.210 Nicotine dependence, cigarettes, uncomplicated; E78.5 Hyperlipidemia, unspecified; I48.91 Unspecified atrial fibrillation; M17.11 Unilateral primary osteoarthritis, right knee; G47.00 Insomnia, unspecified; Z98.890 Other specified postprocedural states; Z79.890 Hormone replacement therapy; Z79.899 Other long term (current) drug therapy; Z98.51 Tubal ligation status
CPT/HCPCS: 00300; 36415; 80048; 84484; 87040; 93005; 93010; 94640; 94760; 94761; 97162-GP; 99221; 99232; A9270-GY; J1100; J1170; J1644; J1885; J2250; J2405; J2550; J2704; J3010; J3370; J3480; J3490; J7050; J7120